=== PATIENT | female | born 1980 | race American Indian/Alaskan Native ===

== ENCOUNTER 2021-10-03 11:12 | Emergency (ER) | payer SELFPAY ==
[2021-10-03] MEDS ORDERED: KETOROLAC 60 MG/2 ML INJ IM ONE (12:02)
--- NOTE | 2021-10-03 12:07 | Emergency Department Report ---
ED General Adult HPI - General Chief complaint: Headache Stated complaint: SEVERE HEADACHE Time Seen by Provider: 10/03/21 11:51 Source: patient Mode of arrival: Ambulatory Limitations: No Limitations - History of Present Illness Initial comments: Patient is 40 years old female with no significant past medical history. Patient presented to the ER complaining of acute dental pain mainly to the right side associated with headache for the last few days. Patient denied any fever or chills. No nausea or vomiting. She also denied any neck pain. No other c omplaint. - Related Data Allergies Allergy/AdvReac Type Severity Reaction Status Date / Time No Known Allergies Allergy Verified 10/03/21 11:31 ED Review of Systems ROS: Stated complaint: SEVERE HEADACHE Other details as noted in HPI Comment: All other systems reviewed and negative Constitutional: denies: chills, fever ENT: dental pain Respiratory: denies: cough, shortness of breath, SOB with exertion, SOB at rest Cardiovascular: denies: chest pain Gastrointestinal: denies: abdominal pain, nausea, vomiting Neurological: headache. denies: weakness, numbness, paresthesias, confusion, abnormal gait ED Past Medical Hx - Past Medical History Previous Medical History?: No - Surgical History Past Surgical History?: No ED Physical Exam - General Limitations: No Limitations General appearance: alert, in no apparent distress - Head Head exam: Present: atraumatic, normocephalic, normal inspection - ENT ENT exam: Present: other (Dental caries) - Neck Neck exam: Present: normal inspection, full ROM. Absent: tenderness, meningismus, lymphadenopathy, thyromegaly - Respiratory Respiratory exam: Present: normal lung sounds bilaterally - Cardiovascular Cardiovascular Exam: Present: regular rate, normal rhythm, normal heart sounds - GI/Abdominal GI/Abdominal exam: Present: soft, normal bowel sounds. Absent: distended, tenderness, guarding, rebound, rigid, organomegaly, mass, bruit, pulsatile mass, hernia - Extremities Exam Extremities exam: Present: normal inspection, full ROM, normal capillary refill. Absent: tenderness - Back Exam Back exam: Present: normal inspection, full ROM. Absent: CVA tenderness (R), CVA tenderness (L) - Neurological Exam Neurological exam: Present: alert, oriented X3, CN II-XII intact, normal gait, reflexes normal. Absent: motor sensory deficit - Psychiatric Psychiatric exam: Present: normal mood - Skin Skin exam: Present: warm, intact, normal color ED Course Vital Signs 10/03/21 11:34 Temperature 98.6 F Pulse Rate 81 Respiratory 18 Rate Blood Pressure 133/83 O2 Sat by Pulse 100 Oximetry ED Medical Decision Making - Medical Decision Making Patient is 40 years old female with no significant past medical history. Patient presented to the ER complaining of acute dental pain mainly to the right side associated with headache for the last few days. Patient denied any fever or chills. No nausea or vomiting. She also denied any neck pain. No other complaint. Patient received Toradol 60 mg IM with improvement in her pain and headache. No clinical evidence of Reece angina. Patient given prescription for amoxicillin and Toradol advised to follow-up with a dentist as soon as possible. She also advised to follow-up with her primary care physician for further management. She advised to return to the ER if she develop any new symptoms or if her symptoms get worse. Critical care attestation.: If time is entered above; I have spent that time in minutes in the direct care of this critically ill patient, excluding procedure time. ED Disposition Clinical Impression: Acute headache, Dental abscess Disposition: 01 HOME / SELF CARE / HOMELESS Is pt being admited?: No Condition: Stable Instructions: Dental Abscess, [id number] Referrals: PRIMARY CARE, [Primary Care Provider] - 3-5 Days
[2021-10-03 12:31] VITALS: BP 124/78
== END 2021-10-03 12:30 | disposition home or self-care (01) ==
LOC: ED 11:12
DX: R51.9 Headache, unspecified (principal); K04.7 Periapical abscess without sinus
CPT/HCPCS: 96372; 99282; J1885

== ENCOUNTER 2021-12-25 12:47 | Emergency (ER) | payer SELFPAY ==
[2021-12-25 13:52] VITALS: BP 135/87
[2021-12-25] MEDS ORDERED: KETOROLAC 30 MG/1 ML INJ IM ONE (14:03)
--- NOTE | 2021-12-25 14:06 | Emergency Department Report ---
ED Back Pain/Injury HPI - General Chief Complaint: Back Pain/Injury Stated Complaint: BACK PAIN/ DEGENERATIVE DISK DISEASE Time Seen by Provider: 12/25/21 13:56 Source: patient Limitations: No Limitations - History of Present Illness Initial Comments: 41-year-old morbid obese -[place] female presents to the emergency room complaining of chronic back pain. Patient states that she was seen at [facility] at the first of this month and was diagnosed with degenerative disc disease. Patient states that she had x-rays at that time. She reports that the naproxen and a muscle relaxant that they placed for her is not working. Patient denies any recent injury no dysuria no radiation of pain. States that she does not have a past medical history except a DDD. She currently does not have a primary care provider. She works in housekeeping. MD Complaint: back pain -: week(s) Similar Symptoms Previously: Yes Radiation: none Severity scale (0 -10): 8 Quality: aching Consistency: intermittent Improves With: none Worsens With: movement Associated Symptoms: denies other symptoms. denies: difficulty walking, difficulty urinating, incontinence, fever/chills, constipation, headaches, abdominal pain Treatments Prior to Arrival: NSAIDS, other (Muscle relaxant) - Related Data Previous Rx's Medication Instructions Recorded Last Taken Type Amoxicillin [Amoxicillin TAB] 875 mg PO BID #14 tablet 10/03/21 Unknown Rx Ketorolac [Toradol] 10 mg PO Q6H PRN #20 tablet 10/03/21 Unknown Rx Ketorolac [Toradol] 10 mg PO Q6H PRN #20 12/25/21 Unknown Rx Allergies Allergy/AdvReac Type Severity Reaction Status Date / Time No Known Allergies Allergy Verified 12/25/21 13:30 ED Review of Systems ROS: Stated complaint: BACK PAIN/ DEGENERATIVE DISK DISEASE Other details as noted in HPI Comment: All other systems reviewed and negative ED Past Medical Hx - Social History Smoking Status: Never Smoker Substance Use Type: None - Medications Home Medications: Home Medications Medication Instructions Recorded Confirmed Last Taken Type Amoxicillin [Amoxicillin TAB] 875 mg PO BID #14 tablet 10/03/21 12/25/21 Unknown Rx Ketorolac [Toradol] 10 mg PO Q6H PRN #20 tablet 10/03/21 12/25/21 Unknown Rx Ketorolac [Toradol] 10 mg PO Q6H PRN #20 12/25/21 Unknown Rx ED Physical Exam - General Limitations: No Limitations ED Course Vital Signs 12/25/21 12/25/21 13:26 13:52 Temperature 98.5 F 98.9 F Pulse Rate 81 83 Respiratory 16 18 Rate Blood Pressure 142/84 135/87 [Right] O2 Sat by Pulse 100 98 Oximetry ED Medical Decision Making - Medical Decision Making 41-year-old morbid obese -[place] female presents to the emergency room complaining of chronic back pain. Patient states that she was seen at [facility] at the first of this month and was diagnosed with degenerative disc disease. Patient states that she had x-rays at that time. She reports that the naproxen and a muscle relaxant that they placed for her is not working. Patient denies any recent injury no dysuria no radiation of pain. States that she does not have a past medical history except a DDD. She currently does not have a primary care provider. She works in housekeeping. Patient be given a Toradol injection. The patient presents with acute back pain. The patient is now resting comfortably and feels better, is alert talkative interactive and in no distress. Repeat examination is unremarkable and benign. The patient is neurologically intact and is ambulatory in the ED. Patient has no fever, no bowel or bladder incontinence, no saddle anesthesia, and is otherwise alert and well-appearing. The history physical examination and diagnostic( if any) do not suggest the presence of acute spinal epidural abscess, acute spinal epidural bleed, cauda equina syndrome, abdominal aortic aneurysm, aortic dissection or other process requiring further testing, treatment or consultation in the emergency department. The vital signs have been stable. The patient's condition is stable and appropriate for discharge. The patient will pursue further outpatient evaluation with a primary care physician or other designated or consulting physician as indicated in the discharge instructions. Critical care attestation.: If time is entered above; I have spent that time in minutes in the direct care of this critically ill patient, excluding procedure time. ED Disposition Clinical Impression: Chronic back pain, Degenerative disc disease Disposition: 01 HOME / SELF CARE / HOMELESS Is pt being admited?: No Does the pt Need Aspirin: No Condition: Stable Instructions: Chronic Back Pain, [id number] Additional Instructions: Take pain medication as needed. Follow-up with a primary care provider or a pain specialist. Prescriptions: Ketorolac [Toradol] 10 mg PO Q6H PRN #20 PRN Reason: Pain Referrals: JUAN REGAN MD [Staff Physician] - 3-5 Days [facility] [Provider Group] - 3-5 Days Forms: Work/School Release Form(ED) Time of Disposition: 14:05
== END 2021-12-25 16:15 | disposition home or self-care (01) ==
LOC: ED 12:47
DX: M51.36 Other intervertebral disc degeneration, lumbar region (principal)
CPT/HCPCS: 96372; 99282; J1885

== ENCOUNTER 2022-02-07 17:09 | Emergency (ER) | payer SELFPAY ==
[2022-02-07 17:48] VITALS: BP 173/106
[2022-02-07] MEDS ORDERED: IBUPROFEN 600 MG TAB PO ONE (19:30)
[2022-02-07] MEDS ORDERED: ONDANSETRON 4 MG ODT TAB PO ONE (19:30)
[2022-02-07] MEDS ORDERED: CLINDAMYCIN 300 MG CAP PO ONE (19:30)
[2022-02-07] MEDS ORDERED: oxyCODONE /ACETAMINOPHEN 5-325MG TAB PO ONE (19:30)
--- NOTE | 2022-02-07 19:38 | Emergency Department Report ---
ED General Adult HPI - General Chief complaint: Dental/Oral Stated complaint: TOOTHACHE/HEACHEAD Source: patient Mode of arrival: Ambulatory Limitations: No Limitations - History of Present Illness Initial comments: Patient is a 41-year-old -[place] female with no past medical history presents to the ED with complaint of acute onset persistent left maxillary premolar and molar tooth ache with swollen gums for the last 1 week, worse in the last 3 days. Patient states that she has been taking [id number] medications with no relief. Patient said that she has not been able to sleep or eat anything in the last 24 hours because of worsening pain. Patient denies dizziness, syncope, nausea and vomiting, chest pain or shortness of breath, fever, chills, sore throat, nasal and sinus congestion, traumatic injury or change in vision. MD Complaint: Left maxillary premolar and molar tooth ache; swollen gums with pain -: week(s) (1) Location: mouth Radiation: non-radiation Severity scale (0 -10): 8 Quality: aching, sharp Consistency: constant Improves with: none Worsens with: eating Associated Symptoms: denies other symptoms. denies: confusion, chest pain, diaphoresis, headaches, loss of appetite, malaise, nausea/vomiting, rash, seizure, shortness of breath, syncope, other Treatments Prior to Arrival: none ( ) - Related Data Previous Rx's Medication Instructions Recorded Last Taken Type Amoxicillin [Amoxicillin TAB] 875 mg PO BID #14 tablet 10/03/21 Unknown Rx Ketorolac [Toradol] 10 mg PO Q6H PRN #20 12/25/21 Unknown Rx Acetaminophen/Codeine [Tylenol 1 tab PO Q6H PRN #12 tab 02/07/22 Unknown Rx /Codeine # 3 tab] Clindamycin [Clindamycin CAP] 300 mg PO Q8H #30 cap 02/07/22 Unknown Rx Ketorolac [Toradol] 10 mg PO Q8H PRN #20 tablet 02/07/22 Unknown Rx metroNIDAZOLE [Flagyl TAB] 500 mg PO Q8HR #30 tablet 02/07/22 Unknown Rx Allergies Allergy/AdvReac Type Severity Reaction Status Date / Time No Known Allergies Allergy Verified 12/25/21 13:30 ED Review of Systems ROS: Stated complaint: TOOTHACHE/HEACHEAD Other details as noted in HPI Constitutional: denies: chills, fever Eyes: denies: eye pain, eye discharge, vision change ENT: dental pain (Left maxillary premolar and molar tooth ache with swollen gums). denies: ear pain, throat pain Respiratory: denies: cough, shortness of breath, wheezing Cardiovascular: denies: chest pain, palpitations Endocrine: no symptoms reported Gastrointestinal: denies: abdominal pain, nausea, diarrhea Genitourinary: denies: urgency, dysuria, discharge Musculoskeletal: denies: back pain, joint swelling, arthralgia Skin: denies: rash, lesions Neurological: denies: headache, weakness, paresthesias Psychiatric: denies: anxiety, depression Hematological/Lymphatic: denies: easy bleeding, easy bruising ED Past Medical Hx - Social History Smoking Status: Never Smoker Substance Use Type: None - Medications Home Medications: Home Medications Medication Instructions Recorded Confirmed Last Taken Type Amoxicillin [Amoxicillin TAB] 875 mg PO BID #14 tablet 10/03/21 12/25/21 Unknown Rx Ketorolac [Toradol] 10 mg PO Q6H PRN #20 12/25/21 Unknown Rx Acetaminophen/Codeine [Tylenol 1 tab PO Q6H PRN #12 tab 02/07/22 Unknown Rx /Codeine # 3 tab] Clindamycin [Clindamycin CAP] 300 mg PO Q8H #30 cap 02/07/22 Unknown Rx Ketorolac [Toradol] 10 mg PO Q8H PRN #20 tablet 02/07/22 Unknown Rx metroNIDAZOLE [Flagyl TAB] 500 mg PO Q8HR #30 tablet 02/07/22 Unknown Rx ED Physical Exam - General Limitations: No Limitations General appearance: alert, in no apparent distress - Head Head exam: Present: atraumatic, normocephalic, normal inspection - Eye Eye exam: Present: normal appearance, PERRL, EOMI Pupils: Present: normal accommodation - ENT ENT exam: Present: mucous membranes moist, TM's normal bilaterally, normal external ear exam, other (Swelling, tender left maxillary gingiva with premolar and molar teeth tenderness) - Neck Neck exam: Present: normal inspection, full ROM - Respiratory Respiratory exam: Present: normal lung sounds bilaterally. Absent: respiratory distress, wheezes, rales, chest wall tenderness, accessory muscle use, prolonged expiratory - Cardiovascular Cardiovascular Exam: Present: regular rate, normal rhythm, normal heart sounds. Absent: systolic murmur, diastolic murmur, rubs, gallop - GI/Abdominal GI/Abdominal exam: Present: soft, normal bowel sounds. Absent: distended, guarding, rebound, hyperactive bowel sounds, hypoactive bowel sounds, organomegaly, pulsatile mass - Extremities Exam Extremities exam: Present: normal inspection, full ROM, normal capillary refill. Absent: tenderness - Back Exam Back exam: Present: normal inspection, full ROM. Absent: tenderness, CVA tenderness (R), CVA tenderness (L), muscle spasm, paraspinal tenderness, vertebral tenderness - Neurological Exam Neurological exam: Present: alert, oriented X3, CN II-XII intact, normal gait, reflexes normal - Psychiatric Psychiatric exam: Present: normal affect, normal mood - Skin Skin exam: Present: warm, dry, intact, normal color. Absent: rash ED Course Vital Signs 02/07/22 17:47 Temperature 98.9 F Pulse Rate 90 Respiratory 18 Rate Blood Pressure 173/106 O2 Sat by Pulse 98 Oximetry ED Medical Decision Making - Medical Decision Making This is a 41-year-old -[place] female with no past medical history presents to the ED with complaint of acute onset persistent left maxillary premolar and molar tooth ache with swollen gums for the last 1 week, worse in the last 3 days. Patient states that she has been taking [id number] medications with no relief. Patient said that she has not been able to sleep or eat anything in the last 24 hours because of worsening pain. In the ED, patient is alert and oriented x3 and is not in any distress. Patient was treated for pain in the ED based on the history and physical exam findings. Patient was discharged home on pain medications and antibiotics and advised to follow-up with her dentist or primary care physician in 7 to 10 days for reevaluation or return to the ED immediately if symptoms get worse. - Differential Diagnosis Dental abscess, dental caries, gingivitis Critical care attestation.: If time is entered above; I have spent that time in minutes in the direct care of this critically ill patient, excluding procedure time. ED Disposition Clinical Impression: Acute gingivitis, Dental abscess, Dental caries Disposition: HOME / SELF CARE / HOMELESS Is pt being admited?: No Does the pt Need Aspirin: No Condition: Stable Instructions: Dental Abscess, [id number], Dental Extraction, Care After, [id number], Trench Mouth Additional Instructions: Take medication with food, drink plenty of fluids, follow-up with your dentist in 7 to 10 days for reevaluation. Return to the ED immediately if symptoms get worse. Prescriptions: Clindamycin [Clindamycin CAP] 300 mg PO Q8H #30 cap metroNIDAZOLE [Flagyl TAB] 500 mg PO Q8HR #30 tablet Ketorolac [Toradol] 10 mg PO Q8H PRN #20 tablet PRN Reason: Pain , Severe (7-10) Acetaminophen/Codeine [Tylenol /Codeine # 3 tab] 1 tab PO Q6H PRN #12 tab PRN Reason: Pain , Severe (7-10) Referrals: [facility] [Provider Group] - 7-[address] [facility] [Outside] - 7-10 days Forms: Work/School Release Form(ED) Time of Disposition: 19:38 Print Language: MONGOLIAN
== END 2022-02-09 01:02 | disposition home or self-care (01) ==
LOC: ED 17:09
DX: K05.00 Acute gingivitis, plaque induced (principal); L02.91 Cutaneous abscess, unspecified; K02.9 Dental caries, unspecified; Z79.899 Other long term (current) drug therapy
CPT/HCPCS: 99281; J3490; Q0162